=== PATIENT | male | born 2000 | race American Indian/Alaskan Native ===

== ENCOUNTER 2019-04-18 03:46 | Emergency (ER) | payer OTHER ==
[2019-04-18] MEDS ORDERED: LIDOCAINE-MPF (1%) 10 MG/1 ML VIAL 5 ML ONE (05:13)
[2019-04-18] MEDS ORDERED: LIDOCAINE-MPF (1%) 10 MG/1 ML VIAL 5 ML INFILTRATI ONE (05:14)
[2019-04-18] MEDS ORDERED: IBUPROFEN 600 MG TAB PO ONE (05:14)
[2019-04-18] MEDS ORDERED: TETANUS,DIPH,PERTUSS(ACELL) VACCINE 0.5 ML SYRINGE IM ONE (05:14)
[2019-04-18] MEDS ORDERED: NEOMY 3.5 MG/BACIT 400 UNITS/POLY B 5000 UNITS/GM OINT PACKET TP ONE ×2 (06:00→06:24)
[2019-04-18] MEDS ORDERED: NEOMY 3.5 MG/BACIT 400 UNITS/POLY B 10,000 UNITS/GM 3.5 GM OPHTH OINT ONE (06:24)
--- NOTE | 2019-04-18 06:45 | Emergency Department Report ---
- General Chief Complaint: Wound/Laceration Stated Complaint: CUT RIGHT FINGER AT WORK Time Seen by Provider: 04/18/19 06:37 Source: patient Mode of arrival: Ambulatory Limitations: No Limitations - History of Present Illness Initial Comments: Patient is a 19-year-old -[place] male with no past medical history presents to the ED with complaint of acute onset persistent severe painful bleeding right ring and index finger lacerations after a grill he was cleaning at work trapped his right hand, causing a lacerations distal right index and ring fingers about one hour ago at work. Patient denies dizziness, nausea, vomiting, numbness and tingling or weakness of right hand or fingers, fall or wrist pain. Patient states that he is not up-to-date on his tetanus vaccinat ions. -: Sudden, hour(s) (1) Location: other (Right index and ring finger lacerations) Extremity Location: Right: Hand (right ring and index finger lacerations) Place: work Patient Tetanus UTD: No (Given during this visit) Context: accidental, sharp object use Associated Symptoms: pain. denies: loss of feeling/numbness, suspect foreign body present, unable to move injured part, weakness followed by dizziness, nausea/vomiting, fever, other - Related Data Previous Rx's Medication Instructions Recorded Last Taken Type Acetaminophen/Codeine [Tylenol 1 tab PO Q6H PRN #12 tab 04/18/19 Unknown Rx /Codeine # 3 tab] Ibuprofen [Motrin] 800 mg PO Q8HR PRN #24 tablet 04/18/19 Unknown Rx Sulfamethoxazole/Trimethoprim 1 each PO Q12H #20 tablet 04/18/19 Unknown Rx [Bactrim DS TAB] Allergies Allergy/AdvReac Type Severity Reaction Status Date / Time No Known Allergies Allergy Unverified 04/18/19 05:13 ED Review of Systems ROS: Stated complaint: CUT RIGHT FINGER AT WORK Other details as noted in HPI Constitutional: denies: chills, fever Eyes: denies: eye pain, eye discharge, vision change ENT: denies: ear pain, throat pain Respiratory: denies: cough, shortness of breath, wheezing Cardiovascular: denies: chest pain, palpitations Endocrine: no symptoms reported Gastrointestinal: denies: abdominal pain, nausea, diarrhea Genitourinary: denies: urgency, dysuria Musculoskeletal: arthralgia (Painful right ring and index finger lacerations). denies: back pain, joint swelling Skin: other (bleeding, painful right index and ring finger lacerations.). denies: rash, lesions Neurological: denies: headache, weakness, paresthesias Psychiatric: denies: anxiety, depression Hematological/Lymphatic: denies: easy bleeding, easy bruising ED Past Medical Hx - Past Medical History Previous Medical History?: No - Surgical History Past Surgical History?: No - Social History Smoking Status: Never Smoker Substance Use Type: Marijuana - Medications Home Medications: Home Medications Medication Instructions Recorded Confirmed Last Taken Type Acetaminophen/Codeine [Tylenol 1 tab PO Q6H PRN #12 tab 04/18/19 Unknown Rx /Codeine # 3 tab] Ibuprofen [Motrin] 800 mg PO Q8HR PRN #24 tablet 04/18/19 Unknown Rx Sulfamethoxazole/Trimethoprim 1 each PO Q12H #20 tablet 04/18/19 Unknown Rx [Bactrim DS TAB] ED Physical Exam - General Limitations: No Limitations General appearance: alert, in no apparent distress - Head Head exam: Present: atraumatic, normocephalic, normal inspection - Eye Eye exam: Present: normal appearance, PERRL, EOMI Pupils: Present: normal accommodation - ENT ENT exam: Present: normal exam, normal orophraynx, mucous membranes moist, TM's normal bilaterally, normal external ear exam - Neck Neck exam: Present: normal inspection, full ROM - Respiratory Respiratory exam: Present: normal lung sounds bilaterally. Absent: respiratory distress, wheezes, rales, rhonchi, chest wall tenderness, accessory muscle use, decreased breath sounds - Cardiovascular Cardiovascular Exam: Present: regular rate, normal rhythm, normal heart sounds. Absent: systolic murmur, diastolic murmur, rubs, gallop - GI/Abdominal GI/Abdominal exam: Present: soft, normal bowel sounds. Absent: tenderness, guarding, hyperactive bowel sounds, organomegaly - Rectal Rectal exam: Present: deferred - Extremities Exam Extremities exam: Present: normal inspection, tenderness (Palpable right ring and index finger tenderness due to bleeding 2 cm and 6 cm lacerations r espectively), normal capillary refill - Back Exam Back exam: Present: normal inspection, full ROM. Absent: muscle spasm, paraspinal tenderness - Neurological Exam Neurological exam: Present: alert, oriented X3, CN II-XII intact, normal gait, reflexes normal - Psychiatric Psychiatric exam: Present: normal affect, normal mood - Skin Skin exam: Present: warm, dry, intact, normal color, abrasion, other (Bleeding right ring finger and index finger lacerations with tenderness). Absent: rash ED Course Vital Signs 04/18/19 04/18/19 03:51 05:28 Temperature 98.6 F Pulse Rate 72 Respiratory 18 16 Rate Blood Pressure 133/82 O2 Sat by Pulse 98 Oximetry - Reevaluation(s) Reevaluation #1: 04/18/19 06:55 This is a 19-year-old male with no past medical history who presented to the ED with acute onset persistent painful bleeding right index and right ring finger lacerations after injury at work in which the grill cut her right index and right ring finger when the right hand was trapped between 2 grill doors. In the ED, patient is alert and oriented 3 and is not in distress. Patient was treated for pain in the ED and also received tetanus booster vaccination. The patient's right index finger and right ring finger lacerations were cleaned thoroughly, the local anesthetic lidocaine 1% was applied and sutured per protocol. Patient tolerated the procedure well. The wounds were cleaned after the procedure and dressed appropriately after application of Neosporin ointment. Patient was discharged home on oral antibiotic prophylaxis and pain medications. Patient was advised to return to the ED immediately if symptoms get worse. Patient was also advised to follow-up with his primary care physician in 7-10 days for reevaluation. Patient was otherwise advised to return to the ED or to his primary care physician in 12-14 days for suture removal. - Laceration /Wound Repair Right Distal Finger Wound Location: upper extremity (right ring finger) Wound Length (cm): 6 Wound's Depth, Shape: irregular, flap Wound Explored: contaminated Irrigated w/ Saline (ccs): 50 Betadine Prep?: Yes Anesthesia: 1% Lidocaine Volume Anesthetic (ccs): 5 Wound Debrided: extensive Wound Repaired With: sutures Suture Size/Type: 4:0 Number of Sutures: 17 Layer Closure?: No Sterile Dressing Applied?: Yes Progress: Patient tolerated the procedure well. The right ring finger wound was cleaned thoroughly after sutures were complete, and the wound dressed appropriately. Patient was discharged home on antibiotics and advised to follow-up with his primary care physician in 7-10 days for reevaluation or return to the ED immediately if symptoms get worse. Patient was otherwise advised to return to the ED in 12-14 days for suture removal. Right Finger Wound Location: upper extremity (right index finger) Wound's Depth, Shape: linear, irregular, flap Wound Explored: contaminated Irrigated w/ Saline (ccs): 2 Betadine Prep?: Yes Anesthesia: 1% Lidocaine Volume Anesthetic (ccs): 3 Wound Debrided: extensive Wound Repaired With: sutures Suture Size/Type: 4:0 Number of Sutures: 5 Layer Closure?: No Sterile Dressing Applied?: Yes Progress: Patient tolerated the procedure well. The right ring finger wound was cleaned thoroughly after sutures were complete, and the wound dressed appropriately. Patient was discharged home on antibiotics and advised to follow-up with his primary care physician in 7-10 days for reevaluation or return to the ED immediately if symptoms get worse. Patient was otherwise advised to return to the ED in 12-14 days for suture removal. ED Medical Decision Making - Medical Decision Making This is a 19-year-old male with no past medical history who presented to the ED with acute onset persistent painful bleeding right index and right ring finger lacerations after injury at work in which the grill cut her right index and right ring finger when the right hand was trapped between 2 grill doors. In the ED, patient is alert and oriented 3 and is not in distress. Patient was treated for pain in the ED and also received tetanus booster vaccination. The patient's right index finger and right ring finger lacerations were cleaned thoroughly, the local anesthetic lidocaine 1% was applied and sutured per protocol. Patient tolerated the procedure well. The wounds were cleaned after the procedure and dressed appropriately after application of Neosporin ointment. Patient was discharged home on oral antibiotic prophylaxis and pain medications. Patient was advised to return to the ED immediately if symptoms get worse. Patient was also advised to follow-up with his primary care physician in 7-10 days for reevaluation. Patient was otherwise advised to return to the ED or to his primary care physician in 12-14 days for suture removal. - Differential Diagnosis Finger lacerations; hand contusion Critical care attestation.: If time is entered above; I have spent that time in minutes in the direct care of this critically ill patient, excluding procedure time. ED Disposition Clinical Impression: Laceration of right index finger w/o foreign body w/o damage to nail Qualifiers: Encounter type: initial encounter Qualified Code(s): S61.210A - Laceration without foreign body of right index finger without damage to nail, initial encounter Laceration of right ring finger w/o foreign body w/o damage to nail Qualifiers: Encounter type: initial encounter Qualified Code(s): S61.214A - Laceration without foreign body of right ring finger without damage to nail, initial encounter Disposition: TO HOME OR SELFCARE Is pt being admited?: No Does the pt Need Aspirin: No Condition: Stable Instructions: Finger Laceration (ED) Additional Instructions: Take medication with food, drink plenty of fluids and follow-up with your primary care physician in 7-10 days for reevaluation. Return to the ED immediately if symptoms get worse. Otherwise return to the ED in 12-14 days for suture removal. Prescriptions: Sulfamethoxazole/Trimethoprim [Bactrim DS TAB] 1 each PO Q12H #20 tablet Ibuprofen [Motrin] 800 mg PO Q8HR PRN #24 tablet PRN Reason: Pain , Severe (7-10) Acetaminophen/Codeine [Tylenol /Codeine # 3 tab] 1 tab PO Q6H PRN #12 tab PRN Reason: Pain , Severe (7-10) Referrals: PRIMARY CARE,MD [Primary Care Provider] - 3-5 Days Forms: Work/School Release Form(ED) Time of Disposition: 06:40 Print Language: WALLISIAN
[2019-04-18 06:57] VITALS: BP 131/82
== END 2019-04-18 06:52 | disposition home or self-care (01) ==
LOC: ED 03:46
DX: S61.210A Laceration without foreign body of right index finger without damage to nail, initial encounter (principal); S61.214A Laceration without foreign body of right ring finger without damage to nail, initial encounter; F12.10 Cannabis abuse, uncomplicated; W20.8XXA Other cause of strike by thrown, projected or falling object, initial encounter; Y93.89 Activity, other specified; Y92.89 Other specified places as the place of occurrence of the external cause; Y99.8 Other external cause status
CPT/HCPCS: 90471; 90715; A6250

== ENCOUNTER 2019-05-01 13:26 | Emergency (ER) | payer SELFPAY ==
--- NOTE | 2019-05-01 13:32 | Emergency Department Report ---
Suture/Staple Removal - [facility] Chief Complaint: Laceration/Recheck/Suture Stated Complaint: REMOVE STITCHES Time Seen by Provider: 05/01/19 13:32 When Sutures or [place] Placed: 8-10 Days Ago Wound Location: right fingers ED Review of Systems ROS: Stated complaint: REMOVE STITCHES Other details as noted in HPI Constitutional: denies: chills, fever Eyes: denies: eye pain, eye discharge, vision change ENT: denies: ear pain, throat pain Respiratory: denies: cough, shortness of breath, wheezing Cardiovascular: denies: chest pain, palpitations Endocrine: no symptoms reported Gastrointestinal: denies: abdominal pain, nausea, diarrhea Genitourinary: denies: urgency, dysuria Musculoskeletal: denies: back pain, joint swelling, arthralgia Skin: denies: rash, lesions Neurological: denies: headache, weakness, paresthesias Psychiatric: denies: anxiety, depression Hematological/Lymphatic: denies: easy bleeding, easy bruising ED Past Medical Hx - Past Medical History Previous Medical History?: No - Surgical History Past Surgical History?: No - Social History Smoking Status: Never Smoker Substance Use Type: Marijuana - Medications Home Medications: Home Medications Medication Instructions Recorded Confirmed Last Taken Type Acetaminophen/Codeine [Tylenol 1 tab PO Q6H PRN #12 tab 04/18/19 Unknown Rx /Codeine # 3 tab] Ibuprofen [Motrin] 800 mg PO Q8HR PRN #24 tablet 04/18/19 Unknown Rx Sulfamethoxazole/Trimethoprim 1 each PO Q12H #20 tablet 04/18/19 Unknown Rx [Bactrim DS TAB] Suture Removal Exam - Exam General: Vital signs noted. No distress. Alert and acting appropriately. Wound: No Pathologic Erythema, No Tenderness, No Drainage, No Pus, No Wound Dehiscence Other Systems: All other systems reviewed and are unremarkable. ED Course - Reevaluation(s) Reevaluation #1: 05/01/19 13:36 Patient is speaking in full sentences with no signs of distress noted. ED Recheck MDM - Medical Decision Making Total of 22 suture removed. Patient tolerated well. no signs of distress. Well healing. Patient was instructed to Follow-up with a primary care doctor in 3-5 days or if symptoms worsen and continue return to emergency room as soon as possible. At time of discharge, the patient does not seem toxic or ill in appearance. No acute signs of distress noted. Patient agrees to discharge treatment plan of care. No further questions noted by the patient. Critical care attestation.: If time is entered above; I have spent that time in minutes in the direct care of this critically ill patient, excluding procedure time. ED Disposition Clinical Impression: Visit for suture removal Disposition: [id number] TO HOME OR SELFCARE Is pt being admited?: No Does the pt Need Aspirin: No Condition: Stable Instructions: Suture Removal (ED) Additional Instructions: Follow-up with a primary care doctor in 3-5 days or if symptoms worsen and continue return to emergency room as soon as possible. Referrals: PRIMARY CARE, [Referring] - 3-5 Days MAGALYS MEDINA MD [Staff Physician] - 3-5 Days [facility] [Outside] - 3-5 Days [facility] [Outside] - 3-5 Days Forms: Work/School Release Form(ED)
[2019-05-01 13:51] VITALS: BP 126/74
== END 2019-05-01 13:50 | disposition home or self-care (01) ==
LOC: ED 13:26
DX: Z48.02 Encounter for removal of sutures (principal)